=== PATIENT | male | born 1955 | race African-American/Black ===

== ENCOUNTER 2020-02-05 05:46 | Day surgery (SDC) | payer OTHER ==
[2020-02-02 12:51] VITALS: BMI 30.8
[2020-02-05] MEDS ORDERED: PROPOFOL 20 ML ONE (07:07)
[2020-02-05] MEDS ORDERED: MIDAZOLAM HCL 2 MG/2 ML SINGLE DOSE VIAL ONE (07:07)
[2020-02-05] MEDS ORDERED: DEXAMETHASONE SOD PHOSPHATE 4 MG/1 ML VIAL ONE (07:07)
[2020-02-05] MEDS ORDERED: ONDANSETRON 4 MG/2 ML VIAL ONE (07:07)
[2020-02-05] MEDS ORDERED: LIDOCAINE HCL 1%, 10 MG/ML (20ML VIAL) ONE (07:23)
[2020-02-05] MEDS ORDERED: BUPIVACAINE HCL/PF 0.25% (2.5MG/ML) 10 ML VIAL ONE (07:23)
[2020-02-05] MEDS ORDERED: ceFAZolin SODIUM 1 GM VIAL ONE (07:47)
[2020-02-05] MEDS ORDERED: BUPIVACAINE HCL/PF 0.25% (2.5MG/ML) 10 ML VIAL IJ ONE (07:56)
[2020-02-05] MEDS ORDERED: LIDOCAINE 1% P/F 10 MG/ML VIAL INF ONE (07:56)
[2020-02-05 08:28] VITALS: TEMP 97.5
[2020-02-05] MEDS ORDERED: ONDANSETRON 4 MG/2 ML VIAL IVPUSH PRN (08:30)
[2020-02-05] MEDS ORDERED: LACTATED RINGERS SOLUTION 1,000 ML IV SCH (08:30)
[2020-02-05] MEDS ORDERED: ACETAMINOPHEN 325 MG TABLET (FP) PO PRN (08:30)
[2020-02-05] MEDS ORDERED: oxyCODONE HCL 5 MG TABLET PO PRN (08:30)
[2020-02-05 09:48] VITALS: BP 144/99; PULSE 76
--- NOTE | 2020-02-06 12:31 | OP ---
DATE OF OPERATION: 02/05/2020 PREOPERATIVE DIAGNOSIS: Left Carpal Tunnel Syndrome POSTOPERATIVE DIAGNOSIS: Left Carpal Tunnel Syndrome PROCEDURE: Left Carpal Tunnel Release ([id number]) SURGEON: Dr. Shante Thomson HYDROLOGY TEACHER: PRINCE Rodriguez FINDINGS: Thickened transverse carpal ligament impinging on median nerve. PROCEDURE: Under sterile conditions, the upper extremity was prepped and draped in a sterile fashion. Incision was made along the longitudinal portion of the carpal tunnel. A longitudinal incision was made along the proximal portion of the palm, following the palm crease. This was taken down to the transcarpal ligament, which was released initially with scalpel and then extended proximally and distally using blunt tenotomy scissors. The median nerve was identified and completely released from impingement by the transcarpal ligament. The wound was then irrigated with copious amounts of irrigation. Skin was closed with 5-0 nylon in single interrupted sutures. The PA listed above was present and assisted at surgery. Their presence was absolutely medically necessary for the completion of the procedure. They helped hold the arthroscopy, pass instruments (and implants when indicated) and the procedure could not have been completed without their assistance. SHANTE THOMSON M.D. [id number]
== END 2020-02-05 09:20 | disposition home or self-care (01) ==
LOC: FASU 05:46
PROVIDERS: ATTEND Orthopaedic Surgery
PROC: 01N50ZZ Release Median Nerve, Open Approach (ICD-10-PCS; principal; 2020-02-05 07:56)
DX: G56.02 Carpal tunnel syndrome, left upper limb (principal)

== ENCOUNTER 2020-11-29 06:56 | Day surgery (SDC) | payer OTHER ==
[2020-11-24 14:49] VITALS: BMI 32.3
[2020-11-29] MEDS ORDERED: ceFAZolin SODIUM 1 GM VIAL ONE ×2 (07:10→07:36)
[2020-11-29] MEDS ORDERED: VANCOMYCIN 1,000 MG VIAL (RESTRICTED TO ID ONLY) ONE (07:11)
[2020-11-29] MEDS ORDERED: MIDAZOLAM HCL 2 MG/2 ML SINGLE DOSE VIAL ONE ×2 (07:31→08:07)
[2020-11-29] MEDS ORDERED: ONDANSETRON 4 MG/2 ML VIAL ONE (07:34)
[2020-11-29] MEDS ORDERED: KETOROLAC TROMETHAMINE 30 MG/1 ML VIAL ONE (07:34)
[2020-11-29] MEDS ORDERED: LIDOCAINE HCL/PF 2% SDV 5ML VIAL ONE (07:34)
[2020-11-29] MEDS ORDERED: DEXAMETHASONE SOD PHOSPHATE 4 MG/1 ML VIAL ONE (07:34)
[2020-11-29] MEDS ORDERED: PROPOFOL 20 ML ONE ×6 (07:35→09:51)
[2020-11-29] MEDS ORDERED: SODIUM CHLORIDE 0.9% P/F 10 ML VIAL IJ ONE ×2 (07:36→08:07)
[2020-11-29] MEDS ORDERED: TRANEXAMIC ACID 1000 MG/10 ML VIAL ONE (07:36)
[2020-11-29] MEDS ORDERED: SUCCINYLCHOLINE CHLORIDE 200 MG/10 ML SYRINGE ONE (07:38)
[2020-11-29] MEDS ORDERED: BUPIVACAINE HCL 50 ML ONE (07:45)
[2020-11-29] MEDS ORDERED: ONDANSETRON 4 MG/2 ML VIAL IVPUSH PRN ×2 (07:57→09:51)
[2020-11-29] MEDS ORDERED: oxyCODONE HCL 5 MG TABLET PO PRN (07:57)
[2020-11-29] MEDS ORDERED: BUPIVACAINE HCL/PF 0.5% (5MG/ML) 10 ML VIAL ONE (08:06)
[2020-11-29] MEDS ORDERED: BUPIVACAINE LIPOSOME/PF (EXPAREL) 266 MG/20 ML VIAL ONE (08:06)
[2020-11-29] MEDS: CELECOXIB 200 MG CAPSULE PO ONE ×2 (08:15→13:09)
[2020-11-29] MEDS ORDERED: CEFAZOLIN 2 GM in DEXTROSE 5%-WATER - 50 ML IVPB ONE (09:30)
[2020-11-29] MEDS ORDERED: TRANEXAMIC ACID 1000 MG/10 ML VIAL IVPUSH ONE (09:30)
[2020-11-29] MEDS ORDERED: MAGNESIUM HYDROX 2400MG/30ML ORAL SUSPENSION 30 ML CUP PO PRN (09:51)
[2020-11-29] MEDS ORDERED: MAG HYDROX/AL HYDROX/SIMETH 30 ML UNIT-DOSE CUP PO PRN (09:51)
[2020-11-29] MEDS ORDERED: LACTATED RINGERS SOLUTION 1,000 ML IV SCH (10:00)
[2020-11-29] MEDS: ACETAMINOPHEN 1000 MG/100 ML VIAL (NON FORMULARY) IVPB ONE ×2 (12:00→13:08)
[2020-11-29] MEDS: LACTATED RINGERS SOLUTION 1,000 ML IV SCH (13:08)
[2020-11-29] MEDS: oxyCODONE HCL 10 MG SUSTAINED ACTING TABLET PO SCH ×2 (13:09→21:18)
[2020-11-29] MEDS: SENNOSIDES/DOCUSATE COMBO (SENNA PLUS) TABLET (UD) PO SCH ×2 (13:09→21:17)
[2020-11-29] MEDS: PANTOPRAZOLE 40 MG TABLET PO SCH (13:09)
[2020-11-29] MEDS: MULTIVITAMINS (DAILY MVI) TABLET (FP) PO SCH (13:10)
[2020-11-29] MEDS: CEFAZOLIN 2 GM/D5W 2 GM/50 ML ML IVPB SCH (17:14)
[2020-11-29] MEDS: ACETAMINOPHEN 325 MG TABLET (FP) PO SCH (17:14)
[2020-11-29] MEDS: oxyCODONE HCL 5 MG TABLET PO PRN (18:32)
[2020-11-29] MEDS ORDERED: TAMSULOSIN HCL 0.4 MG CAP PO SCH (22:00)
[2020-11-29] MEDS ORDERED: ATORVASTATIN CA 20 MG TABLET (FP) PO SCH (22:00)
[2020-11-30] MEDS: CEFAZOLIN 2 GM/D5W 2 GM/50 ML ML IVPB SCH (01:23)
[2020-11-30] MEDS: ACETAMINOPHEN 325 MG TABLET (FP) PO SCH ×3 (01:23→13:08)
[2020-11-30] MEDS: oxyCODONE HCL 5 MG TABLET PO PRN ×3 (01:32→09:50)
[2020-11-30] MEDS ORDERED: ASPIRIN 325 MG TABLET PO SCH (08:00)
[2020-11-30 08:29] LABS: HEMATOCRIT 35.7 % (35.4-49); HEMOGLOBIN 11.6 GM/dl (11.7-16.9); MCH 28.3 pg (25.7-33.7); MCHC 32.6 g/dl (32.0-35.9); MEAN CELL VOLUME 86.7 fl (80-96); MEAN PLT VOLUME 7.7 fl (7.5-11.1); PLATELET COUNT 344 10^3/uL (134-434); RBC 4.12 M/mm3 (4.00-5.60); RDW 13.1 % (11.9-15.9); WHITE BLOOD COUNT 12.2 K/mm3 (4.0-10.8)
[2020-11-30] MEDS: PANTOPRAZOLE 40 MG TABLET PO SCH (09:49)
[2020-11-30] MEDS: oxyCODONE HCL 10 MG SUSTAINED ACTING TABLET PO SCH (09:49)
[2020-11-30] MEDS: SENNOSIDES/DOCUSATE COMBO (SENNA PLUS) TABLET (UD) PO SCH (09:51)
[2020-11-30] MEDS: MULTIVITAMINS (DAILY MVI) TABLET (FP) PO SCH (09:51)
[2020-11-30] MEDS: LACTATED RINGERS SOLUTION 1,000 ML IV SCH (09:51)
[2020-11-30] MEDS ORDERED: amLODIPine BESYLATE 10 MG TABLET (FP) PO SCH (10:00)
[2020-11-30 14:10] VITALS: BP 142/80; PULSE 92; TEMP 98.6
== END 2020-11-30 16:53 | disposition home or self-care (01) ==
LOC: FASUSAT 06:56 → EDSTATUS 10:30 → FM/S 13:00 → FASUSAT 11-30 16:53
PROVIDERS: ATTEND Orthopaedic Surgery
PROC: 8E0YXBZ Computer Assisted Procedure of Lower Extremity (ICD-10-PCS; 2020-11-29)
PROC: 8E0Y0CZ Robotic Assisted Procedure of Lower Extremity, Open Approach (ICD-10-PCS; 2020-11-29)
PROC: 0SRD0J9 Replacement of Left Knee Joint with Synthetic Substitute, Cemented, Open Approach (ICD-10-PCS; principal; 2020-11-29 09:30)
DX: M17.12 Unilateral primary osteoarthritis, left knee (principal)
CPT/HCPCS: 20985; 27447; C1776; S2900; 36415; 73560-TC-LT-FY; 85027; 94760; 97010-GP; 97116-GP; 97161-GP; J0131

== ENCOUNTER 2021-09-22 06:14 | Day surgery (SDC) | payer OTHER ==
[2021-09-14 12:12] VITALS: BMI 33.7
[2021-09-22] MEDS ORDERED: LIDOCAINE HCL 1%, 10 MG/ML (20ML VIAL) ONE (07:06)
[2021-09-22] MEDS ORDERED: BUPIVACAINE HCL/PF 2.5 MG/ML - 30 ML VIAL IJ ONE (07:06)
[2021-09-22] MEDS ORDERED: GLYCOPYRROLATE 0.2 MG/1 ML VIAL ONE (07:24)
[2021-09-22] MEDS ORDERED: PROPOFOL 20 ML ONE (07:24)
[2021-09-22] MEDS ORDERED: MIDAZOLAM HCL 2 MG/2 ML SINGLE DOSE VIAL ONE (07:24)
[2021-09-22] MEDS ORDERED: SODIUM CHLORIDE 0.9% P/F 10 ML VIAL IJ ONE (07:25)
[2021-09-22] MEDS ORDERED: LIDOCAINE HCL/PF 2% SDV 5ML VIAL ONE (07:25)
[2021-09-22] MEDS ORDERED: ceFAZolin SODIUM 1 GM VIAL ONE (07:25)
[2021-09-22 08:26] VITALS: TEMP 97.6
[2021-09-22] MEDS ORDERED: oxyCODONE HCL 5 MG TABLET PO PRN (08:32)
[2021-09-22] MEDS ORDERED: ACETAMINOPHEN 500 MG TABLET (FP) PO PRN (08:32)
[2021-09-22] MEDS ORDERED: LACTATED RINGERS SOLUTION 1,000 ML IV SCH (08:45)
[2021-09-22 09:03] VITALS: BP 127/74; PULSE 87
== END 2021-09-22 09:03 | disposition home or self-care (01) ==
LOC: FASU 06:14
PROVIDERS: ATTEND Orthopaedic Surgery
PROC: 01N50ZZ Release Median Nerve, Open Approach (ICD-10-PCS; principal; 2021-09-22 07:52)
DX: G56.01 Carpal tunnel syndrome, right upper limb (principal)